=== PATIENT | female | born 1965 | race Caucasian/White ===

== ENCOUNTER → 2017-01-07 | Outpatient (CLI) | payer BC ==
[2017-01-07 12:13] LABS: CALCIUM 9.5 mg/dL (8.7-10.7); CHOL/HDL RATIO 3.59 RATIO (0-4.0); LDL CHOLESTEROL,CALCULATED 102.6 mg/dL; SERUM ALBUMIN 4.6 g/dL (3.5-4.8)
== END ==
LOC: LAB 10:44
PROVIDERS: ATTEND Nurse Practitioner Family
DX: E55.9 Vitamin D deficiency, unspecified (principal); K21.9 Gastro-esophageal reflux disease without esophagitis; Z83.49 Family history of other endocrine, nutritional and metabolic diseases
CPT/HCPCS: 36415; 80053; 80061; 82306